=== PATIENT | male | born 1955 | race Caucasian/White ===

== ENCOUNTER 2016-09-26 20:23 | Emergency (ER) | payer OTHER ==
[~2016-09-26] VITALS: Ht 177.8 cm; Wt 90.9 kg
[2016-09-26 20:51] VITALS: BP 154/90; PULSE 65; RESP 18; O2SAT 98
--- NOTE | 2016-09-26 21:01 | ED.REPORT ---
HPI-Psychiatric Illness Date of Service Sep 26, 2016 ED Provider: Rupert Ayers DO Pt is a 61 y.o. male who presents to the ED c/o suicidal ideation onset 4 days ago. Pt states that he has "gotten to a point where he has never been before". He claims that for the past 4 days he has been a "trigger away from peace", referring to killing himself with a gun. He reports that he has always had depression and that he has been "living in hell since before he can remember". Recently he has been dealing with 3 close family members who all suffer from mental illness and it has become a major stressor in his life. Tonight he decided to call the Crisis Line and felt betrayed by them as they contacted the police. He claims that he is a "private" person and did not want the police or his family involved in his mental health. He does state that he has access to firearms and he has several in his office. He is cooperative and states that he would like to talk to a social media intern. He denies drug and ETOH use. Nursing Notes Stated Complaint: SPEAK TO CLINICAL DOCUMENTATION CLERK Chief Complaint: Psychiatric Complaint Nursing Notes Reviewed: Yes Allergies: Coded Allergies: No Known Allergies (Unverified , 09/26/16) General Time Seen by MD: 20:51 Chief Complaint Suicidal ideation Hx Obtained From: Patient Onset Occurred: 4 days ago Symptom Duration: Since onset Severity: Current: No pain currently Severity: Maximum: No pain Recent Healthcare: No recent doctor visit, No recent hospitalization Risk-Psychiatric Illness Suicide Risk Stratification Suicide Risk Factors - Adult: : Access to firearmsNo: Alcohol use, Substance abuse RF Statements: Risk factors reviewed Past Medical History Past Medical History Reports: Hyperlipidemia, Hypertension Smoking History Never Smoker Social History Alcohol Use: Denies alcohol use Drug Use: Denies drug use Other Social History: Ambulatory Status Independent Review of Systems Constitutional: Denies: Chills, Fever GI: Denies: Nausea, Vomiting Psychiatric: Reports: Depression, Stress, Suicidal ideation, Denies: Homicidal ideation Complete sys rev & neg: except as marked. Physical Exam Initial Vital Signs Vital Signs (First) Date Time Temp Pulse Resp B/P Pulse Ox O2 Delivery O2 Flow Rate FiO2 09/26/16 20:51 36.7 65 18 154/90 98 Room Air Initial VS: Reviewed Head / Eyes: Atraumatic, Normocephalic, PERRL Respiratory: Breath sounds normal, No respiratory distress Cardiovascular: Regular rate & rhythm, Intact distal pulses Abdomen / GI: No distention Extremities: Vascular intact, Neuro intact Skin: Warm, Dry, No cyanosis General/Constitutional: Awake, Alert, Well appearing, Well developed, Well hydrated, Well nourished, Cooperative, Not toxic appearing Behavior: Negative: Appears intoxicated Appearance / Presentation: Negative: Intoxicated Neurologic: Oriented X3, Speech NL, No motor deficits, No sensory deficits Psychiatric: Not homicidal, No hallucinations Abnormal Mood/Affect: Positive: Depressed Abnormal Thinking / Perception: Positive: Suicidal, with plan (shoot himself) Pt's speech is slow and deliberate. Interpretation & Diagnostics Lab Results Interpretation Result Diagram: 09/26/16212509/26/162125 Test 09/26/16 21:26 White Blood Count 8.9th/mm3 (3.8-10.1) Red Blood Count 5.38mil/mm3 (4.40-5.80) Hemoglobin 16.0g/dL (13.8-17.2) Hematocrit 47.5% (41.0-50.0) Mean Corpuscular Volume 88.3fL (81-100) Mean Corpuscular Hemoglobin 29.7pg (27.0-35.0) Mean Corpuscular Hemoglobin Concent 33.7% (32.0-37.0) Red Cell Distribution Width 12.7% (12.3-15.4) Platelet Count 222bil/L (150-400) Neutrophils (%) (Auto) 45.5% (40-74) Lymphocytes (%) (Auto) 45.0% (14-46) Monocytes (%) (Auto) 7.8% (4-12) Eosinophils (%) (Auto) 1.4% (0-5) Basophils (%) (Auto) 0.2% (0-3) Sodium Level 140mEq/L (134-144) Potassium Level 3.9mEq/L (3.5-5.2) Chloride Level 100mEq/L (97-108) Carbon Dioxide Level 25mmol/L (18-29) Blood Urea Nitrogen 13mg/dL (6-24) Creatinine 1.22mg/dL (0.76-1.27) Estimat Glomerular Filtration Rate 65mL/min (>59) Glucose Level 112mg/dL (60-99) Calcium Level 9.5mg/dL (8.5-10.1) Total Bilirubin 0.6mg/dL (0.0-1.2) Aspartate Amino Transf (AST/SGOT) 19U/L (0-50) Alanine Aminotransferase (ALT/SGPT) 27U/L (0-44) Alkaline Phosphatase 77U/L (25-160) Total Protein 7.7g/dL (6.4-8.4) Albumin 4.3g/dL (3.4-5.0) Thyroid Stimulating Hormone (TSH) 3.590uIU/mL (0.450-4.500) Hold Smith Top Tube Received (Received) Re-Eval/Medical Decision Med Decision/Clinical Course vegetable i farmworker Romeo Vazquez evaluated Mr. Beavers. ENT feels that Mr. Beavers is at extreme risk for self-harm and he recommends hospitalization. Mr. Beavers is currently voluntary. Romeo was unable to place him tonight. His recommendations were emergency department observation and have the social media intern arrange for voluntary admission in the morning. He does recommend however that if Mr. Beavers decides to leave that we considered detaining him and contact the DCR. Mr. Beavers was medicated with Ativan then Valium and is currently resting comfortably. He is voluntary. He is suicidal with a plan. He is exceedingly high risk for self-harm. Care will be endorsed to Dr. Garcia. Plan for psychiatric admission. Source of Hx: Old records Re-Evaluation/Progress : Time of Eval: 00:44 Re-Evaluation/Progress Note: Pt is requesting "something stronger than the Ativan" Counseled Regarding: Diagnosis, Need for follow-up, When/why to return to ED Discharge & Departure Shift Change Sign-Out Patient Care Transferred: Yes (Dr. Garcia) Discussed Complaint(s): Yes Laboratory Evaluation: Lab evaluation discussed Response to Therapy: Discussed Impression: Primary Impression: Suicidal ideation Additional Impression: Depression Depression Type: major depressive disorder Major depression recurrence: recurrent Active/Remission status: currently active Major depression episode severity: severe Psychotic features: with psychotic features Qualified Code : F33.3 - Major depressive disorder, recurrent, severe with psychotic symptoms Discharge Condition All VS Reviewed: Yes Condition: Improved Care Transferred to: Dr. Garcia Care Transferred at: 03:00 Patti Attestation Portions of this note were transcribed by Xander Hooper. I, Dr. Ayers personally performed the history, physical exam and medical decision-making; I reviewed and confirmed the accuracy of the information in the transcribed note. Signed by : Patti Bundy, 09/27/16 and 0220 Rupert Ayers DO Sep 26, 2016 21:01 XANDER HOOPER Sep 26, 2016 21:06
[2016-09-26 21:36] LABS: BASOPHILS % (AUTO) 0.2 % (0-3); EOSINOPHILS % (AUTO) 1.4 % (0-5); MONOCYTES % (AUTO) 7.8 % (4-12); Mean Corpuscular Hemoglobin 29.7 pg (27.0-35.0); Mean Corpuscular Volume 88.3 fL (81-100); NEUTROPHILS % (AUTO) 45.5 % (40-74); Platelet Count 222 bil/L (150-400)
[2016-09-26] MEDS ORDERED: LORazepam 2 mg Tablet PO ONE (21:50)
[2016-09-27 01:00] VITALS: PULSE 71; RESP 16; O2SAT 99
[2016-09-27 05:47] VITALS: PULSE 62; RESP 16; O2SAT 97
[2016-09-27] MEDS ORDERED: ASPI-973 PO (07:03)
[2016-09-27] MEDS ORDERED: ATRV10T PO (07:03)
[2016-09-27] MEDS ORDERED: VERA120C2 PO (07:03)
[2016-09-27] MEDS ORDERED: MULT-1018 PO (07:03)
[2016-09-27 07:08] VITALS: BP 130/92; PULSE 66; RESP 15; O2SAT 99
[2016-09-27] MEDS ORDERED: Alum-Mag Hydrox-Simeth 30 mL Suspension PO PRN (10:35)
[2016-09-27] MEDS ORDERED: hydrOXYzine Pamoate 25 mg Capsule PO PRN (10:35)
[2016-09-27] MEDS ORDERED: Magnesium Hydroxide 10 mL Oral Concentration PO PRN (10:35)
[2016-09-27] MEDS ORDERED: Benzocaine-Menthol Lozenge 2/Pkg PO PRN (10:35)
[2016-09-27 10:58] VITALS: BP 122/87; PULSE 69; RESP 15; O2SAT 97
[2016-09-27 11:46] VITALS: BP 122/87; PULSE 69; RESP 15; O2SAT 97
== END 2016-09-27 11:25 | disposition home or self-care (01) ==
LOC: SED 21:00
DX: F33.3 Major depressive disorder, recurrent, severe with psychotic symptoms (principal); R45.851 Suicidal ideations; I10 Essential (primary) hypertension; E78.5 Hyperlipidemia, unspecified; F12.10 Cannabis abuse, uncomplicated